=== PATIENT | female | born 1970 | race Caucasian/White ===

== ENCOUNTER 2016-10-04 20:53 | Emergency (ER) | payer OTHER, MEDICAID ==
[~2016-10-04] VITALS: Ht 170.2 cm; Wt 121.9 kg
[~2016-10-04 20:53] MED LIST: MOBI15TA PO
[2016-10-04 20:57] VITALS: BP 126/83; PULSE 81; RESP 16; TEMP 98.1; O2SAT 97
[2016-10-04] MEDS ORDERED: AMOX875T PO (21:25)
--- NOTE | 2016-10-04 21:25 | PD ---
HPI Chief Complaint: ENT Complaint Time Seen by Provider: 21:19 Travel History International Travel<30 days: No Contact w/Intl Traveler<30days: No Traveled to known affect area: No History of Present Illness HPI Patient is a 45-year-old female who presents emergency for evaluation of a sore throat and ear pain. Patient states her symptoms started 3 days ago. She denies any fevers or chills, nausea, vomiting, shortness of breath, chest pain. She does endorse nasal congestion and postnasal drip. PFSH Past Medical History Arthritis: Yes Autoimmune Disease: No Blood Disorders: No Anxiety: Yes Depression: Yes Heart Rhythm Problems: Yes (Reports arrhythmia, doesn't know which one.) Cancer: No Chemotherapy: No Diminished Hearing: No Endocrine: No Gastrointestinal Disorders: No Genitourinary: No Herniated Disk: Yes (X's 3) Musculoskeletal: Yes (Chronic pain left knee and right ankle) Neurologic: No Psychiatric: No Respiratory: No Immunizations Current: Yes Radiation Therapy: No Tetanus Vaccination: Unknown Influenza Vaccination: Yes ?: Not LMP: 09/20/16 : 3 Para: 3 Ovarian Cysts: Yes (Ruputured left fallopian tube/removed) Tubal Ligation: Yes Past Surgical History Abdominal Surgery: Yes Section: Yes Ear Surgery: No Eye Surgery: No Gynecologic Surgery: Yes Oral Surgery: No Other Surgery: Yes Social History Alcohol Use: Yes (RARE) Tobacco Use: No Substance Use: No Allergies-Medications (Allergen,Severity, Reaction): Coded Allergies: No Known Allergies (Verified , 06/26/16) Reported Meds & Prescriptions Reported Meds & Active Scripts Active Mobic (Meloxicam) 15 Mg Tab 15 Mg PO DAILY Review of Systems Except as stated in HPI: all other systems reviewed are Neg General / Constitutional: No: Fever, Chills HENT: Positive: Sore Throat, Congestion, Earache Cardiovascular: No: Chest Pain or Discomfort Respiratory: No: Shortness of Breath Gastrointestinal: No: Nausea, Vomiting, Diarrhea, Abdominal Pain Physical Exam Narrative GENERAL: Well-nourished, well-developed patient. SKIN: Warm and dry. HEAD: Normocephalic. ENT: Mucosa pink and moist. No uvular edema. No uvular, palatal, or tonsillar deviation. Airway patent. Nasal turbinates appear normal without nasal blood, purulent drainage or septal hematoma. Posterior pharynx has cobblestoning appearance, right tonsil is mildly enlarged, no exudates noted. EYES: No scleral icterus. No injection or drainage. EARS: Bilateral pinnae and external canals appear within normal limits. Bilateral tympanic membranes without erythema, dullness or perforation. NECK: Supple, trachea midline. No JVD or lymphadenopathy. CARDIOVASCULAR: Regular rate and rhythm without murmurs, gallops, or rubs. RESPIRATORY: Breath sounds equal bilaterally. No accessory muscle use. GASTROINTESTINAL: Abdomen soft, non-tender, nondistended. MUSCULOSKELETAL: No cyanosis, or edema. BACK: Nontender without obvious deformity. No CVA tenderness. Data Data Last Documented VS Vital Signs Date Time Temp Pulse Resp B/P Pulse Ox O2 Delivery O2 Flow Rate FiO2 10/04/16 21:07 81 16 10/04/16 20:57 98.1 126/83 97 Room Air MDM Medical Decision Making Medical Screen Exam Complete: Yes Emergency Medical Condition: Yes Interpretation(s) Vital Signs Date Time Temp Pulse Resp B/P Pulse Ox O2 Delivery O2 Flow Rate FiO2 10/04/16 21:07 81 16 10/04/16 20:57 98.1 81 16 126/83 97 Room Air Differential Diagnosis Viral URI versus otitis media versus otitis externa versus pharyngitis versus tonsillitis versus abscess versus other Narrative Course Patient is a 45-year-old female who presents emergency department for evaluation of a sore throat and ear pain. Patient is afebrile, she will oxygenated on room air, her vital signs are stable. Physical examination appears most consistent with a viral upper respiratory infection, posterior pharynx is cobblestone appearance. Patient was encouraged to trial symptom management. She was encouraged to obtain [id number] Sudafed or similar, nasal saline wash, nasal steroid. Ibuprofen for pain. She was encouraged to follow-up with her primary doctor return to emergency department for any new or worsening symptoms. Patient will be given a prescription should her symptoms begin to worsen or not improve. She was advised that antibiotics will not cure a viral illness. Patient verbalized understanding of these instructions. Patient is stable for discharge. Diagnosis Primary Impression: Upper respiratory infection Qualified Code: J06.9 - Upper respiratory tract infection, unspecified type Referrals: Primary Care Physician Patient Instructions: General Instructions, Upper Respiratory Infection (ED) Additional Instructions: Continue symptom management Obtain [id number] Sudafed or similar nasal decongestant and use as directed Nasal saline wash, nasal steroids such as Nasonex or Flonase If you begin the antibiotic complete full course to avoid antibiotic resistance Return to emergency department for any new or worsening symptoms Med/Other Pt SpecificInfo: Prescription(s) given Scripts Amoxicillin 875 Mg [id number] Mg PO BID 10 Days Ref 0 Prov:Makenzie Espinal 10/04/16 Disposition: 01 DISCHARGE HOME Condition: Stable Makenzie Espinal Oct 04, 2016 21:25
== END 2016-10-04 21:40 | disposition home or self-care (01) ==
LOC: PHEFT 20:53
DX: J06.9 Acute upper respiratory infection, unspecified (principal)
CPT/HCPCS: 99283

== ENCOUNTER 2016-12-29 19:59 | Emergency (ER) | payer BC, MEDICAID, OTHER ==
[~2016-12-29] VITALS: Ht 170.2 cm; Wt 121.0 kg
[~2016-12-29 19:59] MED LIST changes: +AMOX875T PO
[2016-12-29 20:11] VITALS: BP 119/80; PULSE 100; RESP 18; TEMP 101; O2SAT 99
[2016-12-29 20:33] VITALS: BP 134/74; PULSE 96; RESP 18; TEMP 100.4; O2SAT 96
[2016-12-29 20:37] VITALS: PULSE 92; RESP 18; O2SAT 97
[2016-12-29] MEDS ORDERED: ACETAMINOPHEN 325 MG TAB PO ONE (20:45)
[2016-12-29] MEDS ORDERED: SODIUM CHLORIDE 0.9% FLUSH 10 ML FLUSH IVF PRN (20:45)
[2016-12-29] MEDS ORDERED: SODIUM CHLOR 0.9% 1000 ML INJ 1,000 ML IV ONE (20:45)
--- NOTE | 2016-12-29 20:47 | PD ---
HPI Chief Complaint: Dizziness Time Seen by Provider: 20:19 Travel History International Travel<30 days: No Contact w/Intl Traveler<30days: No Traveled to known affect area: No History of Present Illness HPI Patient 46-year-old female presents emergency department for body aches chills mild queasiness as well as some mild chest discomfort. Patient states his been going on for the past day and half. Patient also has a secondary complaint of she broke up a fight between her cat and some dogs and was bitten on bilateral index fingers. Patient states this happened just prior to arrival the cat is there In their custody but the shots are not up-to-date. Her daughter is accompanying her stated the reason they decided to come to the ER because of the Bites. Patient denies any cough or congestion abdominal pain vomiting diarrhea or dysuria. PFSH Past Medical History Arthritis: Yes Autoimmune Disease: No Blood Disorders: No Anxiety: Yes Depression: Yes Heart Rhythm Problems: Yes (Reports arrhythmia, doesn't know which one.) Cancer: No Cardiovascular Problems: Yes Chemotherapy: No Diminished Hearing: No Endocrine: No Gastrointestinal Disorders: No Genitourinary: No Herniated Disk: Yes (X's 3) Musculoskeletal: Yes (Chronic pain left knee and right ankle) Neurologic: No Psychiatric: No Respiratory: No Immunizations Current: Yes Radiation Therapy: No Tetanus Vaccination: > 5 Years ?: Not LMP: 11/14/2016 : 3 Para: 3 Ovarian Cysts: Yes (Ruputured left fallopian tube/removed) Tubal Ligation: Yes Past Surgical History Abdominal Surgery: Yes Section: Yes Ear Surgery: No Eye Surgery: No Gynecologic Surgery: Yes Oral Surgery: No Other Surgery: Yes Social History Alcohol Use: Yes (RARE) Tobacco Use: No Substance Use: No Allergies-Medications (Allergen,Severity, Reaction): Coded Allergies: No Known Allergies (Verified , 12/29/16) Reported Meds & Prescriptions Reported Meds & Active Scripts Active Zofran Odt (Ondansetron Odt) 4 Mg Tab 4 Mg SL Q6HR PRN Augmentin (Amoxicillin-Clavulanate) 500-125 mg Tab 500 Mg PO BID 10 Days Review of Systems Except as stated in HPI: all other systems reviewed are Neg Physical Exam Narrative GENERAL: Well-developed obese but in no apparent distress SKIN: Focused skin assessment warm/dry. There is some small abrasions and punctures to the bilateral index fingers over the proximal phalanx. No bleeding. There is some minimal edema particularly over the index finger of the right hand. No cellulitis. HEAD: Atraumatic. Normocephalic. EYES: Pupils equal and round. No scleral icterus. No injection or drainage. ENT: No nasal bleeding or discharge. Mucous membranes pink and moist. TMs clear bilaterally or pharynx clear. NECK: Trachea midline. No JVD. CARDIOVASCULAR: Regular rate and rhythm. No murmur appreciated. RESPIRATORY: No accessory muscle use. Clear to auscultation. Breath sounds equal bilaterally. GASTROINTESTINAL: Abdomen soft, non-tender, nondistended. Hepatic and splenic margins not palpable. MUSCULOSKELETAL: No obvious deformities. No clubbing. No cyanosis. No edema. NEUROLOGICAL: Awake and alert. No obvious cranial nerve deficits. Motor grossly within normal limits. Normal speech. PSYCHIATRIC: Appropriate mood and affect; insight and judgment normal. Data Data Last Documented VS Vital Signs Date Time Temp Pulse Resp B/P Pulse Ox O2 Delivery O2 Flow Rate FiO2 12/29/16 22:24 86 18 103/67 97 12/29/16 20:37 Room Air 12/29/16 20:33 100.4 Orders Electrocardiogram (12/29/16 20:32) Basic Metabolic Panel (Bmp) (12/29/16 20:32) Complete Blood Count With Diff (12/29/16 20:32) Troponin I (12/29/16 20:32) Chest, Single Ap (12/29/16 20:32) Ecg Monitoring (12/29/16 20:32) Bilateral Bp Monitoring (12/29/16 20:32) Iv Access Insert/Monitor (12/29/16 20:32) Oximetry (12/29/16 20:32) Oxygen Administration (12/29/16 20:32) Sodium Chloride 0.9% Flush (Ns Flush) (12/29/16 20:45) Ed Urine Pregnancytest Poc (12/29/16 20:32) Urinalysis - C+S If Indicated (12/29/16 20:32) Influenzae A/B Antigen (12/29/16 20:32) Acetaminophen (Tylenol) (12/29/16 20:45) Sodium Chlor 0.9% 1000 Ml Inj (Ns 1000 M (12/29/16 20:45) Hand, Complete ([id number]) (12/29/16 ) Hand, Complete ([id number]) (12/29/16 ) Labs Laboratory Tests Test 12/29/16 12/29/16 20:51 20:58 Urine Collection Type VOIDED Urine Color YELLOW Urine Turbidity CLEAR Urine pH 5.5 Urine Specific Dillon 1.027 Urine Protein 30 mg/dL Urine Glucose (UA) NEG mg/dL Urine Ketones NEG mg/dL Urine Occult Blood NEG Urine Nitrite NEG Urine Bilirubin NEG Urine Leukocyte Esterase NEG Urine WBC 0-2 /hpf Urine Squamous Epithelial >8 /hpf Cells Urine Bacteria RARE /hpf Urine Mucus MANY /lpf Microscopic Urinalysis Comment CULT NOT INDICATED White Blood Count 14.5 TH/MM3 Red Blood Count 5.28 MIL/MM3 Hemoglobin 15.2 GM/DL Hematocrit 44.5 % Mean Corpuscular Volume 84.3 FL Mean Corpuscular Hemoglobin 28.8 PG Mean Corpuscular Hemoglobin 34.2 % Concent Red Cell Distribution Width 12.1 % Platelet Count 185 TH/MM3 Mean Platelet Volume 9.1 FL Neutrophils (%) (Auto) 91.2 % Lymphocytes (%) (Auto) 6.3 % Monocytes (%) (Auto) 2.1 % Eosinophils (%) (Auto) 0.2 % Basophils (%) (Auto) 0.2 % Neutrophils # (Auto) 13.3 TH/MM3 Lymphocytes # (Auto) 0.9 TH/MM3 Monocytes # (Auto) 0.3 TH/MM3 Eosinophils # (Auto) 0.0 TH/MM3 Basophils # (Auto) 0.0 TH/MM3 CBC Comment DIFF FINAL Differential Comment Sodium Level 141 MEQ/L Potassium Level 4.1 MEQ/L Chloride Level 103 MEQ/L Carbon Dioxide Level 27.2 MEQ/L Anion Gap 11 MEQ/L Blood Urea Nitrogen 14 MG/DL Creatinine 0.86 MG/DL Estimat Glomerular Filtration 71 ML/MIN Rate Random Glucose 110 MG/DL Calcium Level 9.0 MG/DL Troponin I LESS THAN 0.02 NG/ML [facility] Medical Decision Making Medical Screen Exam Complete: Yes Emergency Medical Condition: Yes Interpretation(s) EKG shows sinus rhythm with Q waves in lead 3 and aVF. Minimal left axis deviation normal R-wave progression. No concerning ST T changes. This is an abnormal EKG. Comparison to 11/21/2015 shows no change. Differential Diagnosis Bite, fever, viral illness, pneumonia, urinary tract infection, influenza Narrative Course Patient was roomed emergency department, given fluids and Tylenol. She was afebrile at the point of reassessment near discharge. Rapid flu test was negative, white blood cell count minimally elevated to 14,000. Definitive cause of her fever was not established. She appears well in no apparent distress and is no indication for further emergent workup at this time. I seriously doubt severe bacterial infection. Her cat bites were to recent to be the source of her fever. Discussed antibiotic therapy need follow-up with primary care physician observing the cat for any illness and the cat should develop illness needs to be tested for rabies and the patient should be treated. There is no indication for rabies shots this time. Chest x-ray was negative, bilateral hand x-rays were negative. She is stable for discharge at this time. Diagnosis Primary Impression: Fever Qualified Code: R50.9 - Fever, unspecified fever cause Additional Impressions: Cat bite of finger Qualified Code: S61.259A - Cat bite of finger, initial encounter Viral syndrome Med/Other Pt SpecificInfo: Prescription(s) given Scripts Ondansetron Odt (Zofran Odt)4 Mg Tab4 Mg SL Q6HR PRN (Nausea/Vomiting) #30 TAB Ref 0 Prov:Stephane Murillo MD 12/29/16 Amoxicillin-Clavulanate (Augmentin)500-125 mg Egm100 Mg PO BID 10 Days Ref 0 Prov:Stephane Murillo MD 12/29/16 Disposition: 01 DISCHARGE HOME Condition: Stable Stephane Murillo MD Dec 29, 2016 20:47
[2016-12-29 21:25] LABS: BLOOD, URINE NEG (NEG); GLUCOSE,URINE NEG (NEG); KETONE, URINE NEG (NEG); NITRITE,URINE NEG (NEG); PH, URINE 5.5 (5.0-8.5)
[2016-12-29 21:29] LABS: AUTOMATED NEUTROPHIL # 13.3 TH/MM3 (1.8-7.7); BASOPHIL % 0.2 % (0.0-2.0); EOSINOPHIL % 0.2 % (0.0-4.0); HEMATOCRIT 44.5 % (35.0-46.0); LYMPH % 6.3 % (9.0-44.0); LYMPHOCYTE # 0.9 TH/MM3 (1.0-4.8); MEAN CELL VOLUME 84.3 FL (80.0-100.0); MEAN CORPUSCULAR HEMOGLOBIN 28.8 PG (27.0-34.0); MEAN CORPUSCULAR HGB CONC 34.2 % (32.0-36.0); MONO % 2.1 % (0.0-8.0); NEUT % 91.2 % (16.0-70.0); PLATELET COUNT 185 TH/MM3 (150-450); RED BLOOD COUNT 5.28 MIL/MM3 (4.00-5.30); RED CELL DISTRIBUTION WIDTH 12.1 % (11.6-17.2); WHITE BLOOD COUNT 14.5 TH/MM3 (4.0-11.0)
[2016-12-29 21:32] LABS: HEMO FLAGS DIFF FINAL
[2016-12-29 21:33] LABS: CHLORIDE 103 MEQ/L (98-107); POTASSIUM 4.1 MEQ/L (3.5-5.1); SODIUM (NA) 141 MEQ/L (136-145)
[2016-12-29 21:35] LABS: ANION GAP 11 MEQ/L (5-15); BICARBONATE 27.2 MEQ/L (21.0-32.0)
[2016-12-29 21:36] LABS: BLOOD UREA NITROGEN 14 MG/DL (7-18)
[2016-12-29 21:39] LABS: GLOMERULAR FILTRATION RATE 71 ML/MIN (>89)
--- NOTE | 2016-12-29 21:51 | RADHPO ---
EXAM DATE/TIME: 12/29/2016 21:09 [facility] COMPARISON: No previous studies available for comparison. INDICATIONS : Dizziness. MEDICAL HISTORY : None. SURGICAL HISTORY : None. ENCOUNTER: Initial ACUITY: 1 day PAIN SCORE: 0/10 LOCATION: Bilateral chest FINDINGS: A single view of the chest demonstrates the lungs to be symmetrically aerated without evidence of mas s, infiltrate or effusion. The cardiomediastinal contours are unremarkable. Osseous structures are intact. CONCLUSION: No acute disease. Aamir Ramirez MD on December 29, 2016 at 21:49 Board Certified Radiologist. This report was verified electronically.
--- NOTE | 2016-12-29 21:52 | RADHPO ---
EXAM DATE/TIME: 12/29/2016 21:11 [facility] COMPARISON: No previous studies available for comparison. INDICATIONS : Left hand pain post cat bite. MEDICAL HISTORY : None. SURGICAL HISTORY : None. ENCOUNTER: Initial ACUITY: 1 day PAIN SCORE: 5/10 LOCATION: Left hand. FINDINGS: Three view examination of the left hand demonstrates no soft tissue swelling, dislocation, or fractur e. The carpal bones appear intact. The interphalangeal and metacarpophalangeal joints are intact. Bony mineralization is normal. CONCLUSION: 1. No acute findings. Aamir Ramirez MD on December 29, 2016 at 21:49 Board Certified Radiologist. This report was verified electronically.
--- NOTE | 2016-12-29 21:53 | RADHPO ---
EXAM DATE/TIME: 12/29/2016 21:13 [facility] COMPARISON: No previous studies available for comparison. INDICATIONS : Right hand pain post cat bite. MEDICAL HISTORY : None. SURGICAL HISTORY : None. ENCOUNTER: Initial ACUITY: 1 day PAIN SCORE: 5/10 LOCATION: Right hand. FINDINGS: Three view examination of the right hand demonstrates no soft tissue swelling, dislocation, or fractu re. The carpal bones appear intact. The interphalangeal and metacarpophalangeal joints are intact. Bony mineralization is normal. CONCLUSION: 1. No acute findings. Aamir Ramirez MD on December 29, 2016 at 21:51 Board Certified Radiologist. This report was verified electronically.
[2016-12-29 22:01] LABS: METHOD OF COLLECTION VOIDED; URINE COLOR YELLOW (YELLW/STRAW)
[2016-12-29 22:02] LABS: BACTERIA, URINE RARE /hpf; COMMENT (UR) CULT NOT INDICATED; CULTURE IF INDICATED CULT NOT INDICATED; MUCUS URINE MANY /lpf (OCC); SQUAMOUS EPITHELIAL CELL URINE >8 /hpf (0-5); WBC, URINE 0-2 /hpf (0-5)
[2016-12-29] MEDS ORDERED: ZOFR4TAB3 SL (22:12)
[2016-12-29] MEDS ORDERED: AUGM500T7 PO (22:12)
[2016-12-29 22:24] VITALS: BP 103/67
--- NOTE | 2016-12-30 13:47 | EKG ---
Date Performed: 12/29/2016 Time Performed: 20:39:20 PTAGE: 46 years EKG: Borderline left axis deviation Poor R wave progression which may be a normal variant Since previous tracing, no significant change noted Abnormal ECG PREVIOUS TRACING : 11/21/2015 14.05 DOCTOR: Cristóbal Hoang Interpretating Date/Time 12/30/2016 13:45:24
== END 2016-12-29 22:44 | disposition home or self-care (01) ==
LOC: PHED 19:59
DX: R50.9 Fever, unspecified (principal); S61.251A Open bite of left index finger without damage to nail, initial encounter; S61.250A Open bite of right index finger without damage to nail, initial encounter; B34.9 Viral infection, unspecified; R94.31 Abnormal electrocardiogram [ECG] [EKG]; Z87.39 Personal history of other diseases of the musculoskeletal system and connective tissue; Z86.79 Personal history of other diseases of the circulatory system; Z86.59 Personal history of other mental and behavioral disorders; W55.01XA Bitten by cat, initial encounter
CPT/HCPCS: 71010; 73130; 80048; 81001; 84484; 84703; 85025; 87804; 93005; 96360; 99284; J7030

== ENCOUNTER 2017-03-04 22:25 | Emergency (ER) | payer MEDICAID ==
[~2017-03-04] VITALS: Ht 170.2 cm; Wt 125.2 kg
[~2017-03-04 22:25] MED LIST changes: -AMOX875T PO; +AUGM500T7 PO; -MOBI15TA PO; +ZOFR4TAB3 SL
[2017-03-04 22:27] VITALS: BP 132/80; PULSE 67; RESP 18; TEMP 98.5; O2SAT 98
[2017-03-04] MEDS ORDERED: BACT800T5 PO (22:57)
--- NOTE | 2017-03-04 22:59 | PD ---
HPI Chief Complaint: Skin Problem Time Seen by Provider: 22:57 Travel History International Travel<30 days: No Contact w/Intl Traveler<30days: No Traveled to known affect area: No History of Present Illness HPI 46-year-old female presents to the emergency room for evaluation of 3 mosquito bites to her left lower extremity that occurred 2 days ago. Patient states they are extremely itchy. She noticed increased redness morning when she woke up. She reports clear drainage but denies any purulent discharge. States it is not painful. She is concerned because the area on her left knee feels harder than the area on her right knee. Denies fever, chills, nausea, and vomiting. PFSH Past Medical History Arthritis: Yes Autoimmune Disease: No Blood Disorders: No Anxiety: Yes Depression: Yes Heart Rhythm Problems: Yes (Reports arrhythmia, doesn't know which one.) Cancer: No Cardiovascular Problems: Yes (ARRYTHMIA) Chemotherapy: No Diminished Hearing: No Endocrine: No Gastrointestinal Disorders: No Genitourinary: No Herniated Disk: Yes (X's 3) Musculoskeletal: Yes (Chronic pain left knee and right ankle) Neurologic: No Psychiatric: No Respiratory: No Immunizations Current: Yes Radiation Therapy: No Tetanus Vaccination: Unknown Influenza Vaccination: Yes ?: Not LMP: BEGIN FEBRUARY : 3 Para: 3 Ovarian Cysts: Yes (Ruputured left fallopian tube/removed) Tubal Ligation: Yes Past Surgical History Abdominal Surgery: Yes Section: Yes Ear Surgery: No Eye Surgery: No Gynecologic Surgery: Yes Oral Surgery: No Other Surgery: Yes Social History Alcohol Use: Yes (OCCASIONAL) Tobacco Use: No Substance Use: No Allergies-Medications (Allergen,Severity, Reaction): Coded Allergies: No Known Allergies (Verified , 03/04/17) Reported Meds & Prescriptions Reported Meds & Active Scripts Active Bactrim DS (Sulfamethoxazole-Trimethoprim) 800-160 Mg Tab 1 Tab PO BID Review of Systems Except as stated in HPI: all other systems reviewed are Neg Physical Exam Narrative GENERAL: Well-nourished, well-developed female in no acute distress. Afebrile. Ambulatory. SKIN: Focused skin assessment warm/dry. There is a small noninfected bite to the left lower anterior tibia. There is a small bite on the left inferior knee that is nontender to palpation. No drainage. No induration. Mild surrounding , nonblanching erythema. There is a small noninfected bite to the posterior calf. HEAD: Normocephalic. EYES: No scleral icterus. No injection or drainage. NECK: Supple, trachea midline. No JVD or lymphadenopathy. CARDIOVASCULAR: Regular rate and rhythm without murmurs, gallops, or rubs. RESPIRATORY: Breath sounds equal bilaterally. No accessory muscle use. PSYCHIATRIC: No delusional thought processes. No hallucinations. Data Data Last Documented VS Vital Signs Date Time Temp Pulse Resp B/P Pulse Ox O2 Delivery O2 Flow Rate FiO2 03/04/17 22:27 98.5 67 18 132/80 98 MDM Medical Decision Making Medical Screen Exam Complete: Yes Emergency Medical Condition: Yes Medical Record Reviewed: Yes Differential Diagnosis Early cellulitis, abscess, infected bug bite, ecchymosis Narrative Course 46-year-old female presents to the emergency room for evaluation of 3 but bites to her left lower extremity that started 3 days ago. Patient states increased redness started today. Physical exam is reassuring. Patient has 2 noninfected mosquito bites. The third bite has 2 cm of surrounding erythema that is non- blanchable. It is nontender and nonindurated. No increased warmth. The redness is more evident of ecchymosis caused by scratching than secondary bacterial infection. The area was outlined with purple marker. Patient will be discharged with prescription for Bactrim and told only to start medication if redness continues to expand, becomes hard, becomes warm, or develops pain. She understands and agrees to plan. Diagnosis Primary Impression: Cellulitis Qualified Code: L03.116 - Cellulitis of left lower extremity Referrals: Primary Care Physician Patient Instructions: Cellulitis (ED), General Instructions Additional Instructions: Rest and drink plenty of fluids. Start Bactrim if redness expands outside purple line, until gone. Follow up with a primary care physician. Return to emergency room for worsening symptoms, as discussed. Med/Other Pt SpecificInfo: Prescription(s) given Scripts Sulfamethoxazole-Trimethoprim (Bactrim DS)800-160 Mg Tab1 Tab PO BID #14 TAB Ref 0 Prov:Freddy Liao MD 03/04/17 Disposition: 01 DISCHARGE HOME Condition: Stable Elena López Mar 04, 2017 22:59
== END 2017-03-04 23:07 | disposition home or self-care (01) ==
LOC: PHEFT 22:25
DX: L03.116 Cellulitis of left lower limb (principal)
CPT/HCPCS: 99283

== ENCOUNTER 2017-04-15 11:48 | Observation (INO) | payer MEDICAID ==
[~2017-04-15] VITALS: Ht 170.2 cm; Wt 121.4 kg
[~2017-04-15 11:48] MED LIST changes: -AUGM500T7 PO; +BACT800T5 PO; -ZOFR4TAB3 SL
[2017-04-15 11:55] VITALS: BP 150/88; PULSE 71; RESP 16; TEMP 98.1; O2SAT 96
--- NOTE | 2017-04-15 12:01 | PD ---
HPI Chief Complaint: Chest Pain Time Seen by Provider: 12:00 Travel History International Travel<30 days: No Contact w/Intl Traveler<30days: No Traveled to known affect area: No History of Present Illness HPI 46 -year-old female complains of a vague chest discomfort. She felt that yesterday. She reports significant personal stress lately and believes they might be related. She's had no shortness of breath. She does describe some pain in the left shoulder however was updated old rotator cuff injury. No exertional component. No shortness of breath fever or cough. The notes the patient's cervical sometimes with breathing at night due to what they believe might be sleep apnea. The patient also reports feeling rundown and fatigued generally for the past couple weeks. At the time of evaluation in the ER she has no chest discomfort. She reports a family history of coronary artery disease with a brother, 10 years older than her, having just recently suffered a major RI. No diabetes hypertension hyperlipidemia or smoking history. PFSH Past Medical History Arthritis: Yes Autoimmune Disease: No Blood Disorders: No Anxiety: Yes Depression: Yes Heart Rhythm Problems: Yes (Reports arrhythmia, doesn't know which one.) Cancer: No Cardiovascular Problems: Yes (ARRYTHMIA) Chemotherapy: No Diminished Hearing: No Endocrine: No Gastrointestinal Disorders: No Genitourinary: No Herniated Disk: Yes (X's 3) Musculoskeletal: Yes (Chronic pain left knee and right ankle) Neurologic: No Psychiatric: No Respiratory: No Immunizations Current: Yes Radiation Therapy: No : 3 Para: 3 Ovarian Cysts: Yes (Ruputured left fallopian tube/removed) Tubal Ligation: Yes Past Surgical History Abdominal Surgery: Yes Section: Yes Ear Surgery: No Eye Surgery: No Gynecologic Surgery: Yes Oral Surgery: No Other Surgery: Yes Social History Alcohol Use: Yes (OCCASIONAL) Tobacco Use: No Substance Use: No Allergies-Medications (Allergen,Severity, Reaction): Coded Allergies: No Known Allergies (Verified , 04/15/17) Reported Meds & Prescriptions Reported Meds & Active Scripts Active No Active Prescriptions or Reported Medications Review of Systems Except as stated in HPI: all other systems reviewed are Neg General / Constitutional: No: Fever Physical Exam Narrative GENERAL: 46-year-old female pleasant no acute distress SKIN: Warm and dry. HEAD: Atraumatic. Normocephalic. EYES: Pupils equal and round. No scleral icterus. No injection or drainage. ENT: No nasal bleeding or discharge. Mucous membranes pink and moist. NECK: Trachea midline. No JVD. CARDIOVASCULAR: Regular rate and rhythm. RESPIRATORY: No accessory muscle use. Clear to auscultation. Breath sounds equal bilaterally. GASTROINTESTINAL: Abdomen soft, non-tender, nondistended. Hepatic and splenic margins not palpable. MUSCULOSKELETAL: Extremities without clubbing, cyanosis, or edema. No obvious deformities. NEUROLOGICAL: Awake and alert. No obvious cranial nerve deficits. Motor grossly within normal limits. Five out of 5 muscle strength in the arms and legs. Normal speech. PSYCHIATRIC: Appropriate mood and affect; insight and judgment normal. Data Data Last Documented VS Vital Signs Date Time Temp Pulse Resp B/P Pulse Ox O2 Delivery O2 Flow Rate FiO2 04/15/17 12:25 97 Room Air 04/15/17 12:25 68 04/15/17 11:55 98.1 16 150/88 Vital signs reviewed Orders Electrocardiogram (04/15/17 12:17) Basic Metabolic Panel (Bmp) (04/15/17 12:17) Ckmb (Isoenzyme) Profile (04/15/17 12:17) Complete Blood Count With Diff (04/15/17 12:17) Magnesium (Mg) (04/15/17 12:17) Prothrombin Time / Inr (Pt) (04/15/17 12:17) Act Partial Throm Time (Ptt) (04/15/17 12:17) Troponin I (04/15/17 12:17) Chest, Single Ap (04/15/17 12:17) Ecg Monitoring (04/15/17 12:17) Iv Access Insert/Monitor (04/15/17 12:17) Oximetry (04/15/17 12:17) Oxygen Administration (04/15/17 12:17) Sodium Chloride 0.9% Flush (Ns Flush) (04/15/17 12:30) Admit Order (Ed Use Only) (04/15/17 13:33) Place In Observation (04/15/17 13:31) Activity Bed Rest With Brp (04/15/17 13:31) Vital Signs (Adult) Q4H (04/15/17 13:31) Cardiac Rhythm .As Directed (04/15/17 13:31) Notify Dr: Other .PRN (04/15/17 13:31) Notify DrNoble Parameters (04/15/17 13:31) Resp Oxygen Nasal Cannula (04/15/17 ) Electrocardiogram (04/15/17 13:31) Electrocardiogram (04/15/17 16:31) ^ Obtain (04/15/17 13:31) Sodium Chloride 0.9% Flush (Ns Flush) (04/15/17 13:45) Sodium Chloride 0.9% Flush (Ns Flush) (04/15/17 21:00) Nitroglycerin Sl (Nitrostat Sl) (04/15/17 13:45) Route Driver Salesperson / Telemetry LAWSON.Q8H (04/15/17 13:31) Electrocardiogram (04/15/17 15:30) Electrocardiogram (04/15/17 18:30) Ckmb (Isoenzyme) Profile (04/15/17 15:30) Ckmb (Isoenzyme) Profile (04/15/17 18:30) Troponin I (04/15/17 15:30) Troponin I (04/15/17 18:30) Labs Laboratory Tests Test 04/15/17 12:35 White Blood Count 7.7 TH/MM3 Red Blood Count 5.20 MIL/MM3 Hemoglobin 14.6 GM/DL Hematocrit 43.5 % Mean Corpuscular Volume 83.7 FL Mean Corpuscular Hemoglobin 28.0 PG Mean Corpuscular Hemoglobin 33.4 % Concent Red Cell Distribution Width 12.3 % Platelet Count 235 TH/MM3 Mean Platelet Volume 8.8 FL Neutrophils (%) (Auto) 62.9 % Lymphocytes (%) (Auto) 29.8 % Monocytes (%) (Auto) 5.9 % Eosinophils (%) (Auto) 0.9 % Basophils (%) (Auto) 0.5 % Neutrophils # (Auto) 4.8 TH/MM3 Lymphocytes # (Auto) 2.3 TH/MM3 Monocytes # (Auto) 0.5 TH/MM3 Eosinophils # (Auto) 0.1 TH/MM3 Basophils # (Auto) 0.0 TH/MM3 CBC Comment DIFF FINAL Differential Comment Prothrombin Time 10.7 SEC Prothromb Time International 1.0 RATIO Ratio Activated Partial 25.4 SEC Thromboplast Time Sodium Level 141 MEQ/L Potassium Level 4.0 MEQ/L Chloride Level 105 MEQ/L Carbon Dioxide Level 28.8 MEQ/L Anion Gap 7 MEQ/L Blood Urea Nitrogen 13 MG/DL Creatinine 0.83 MG/DL Estimat Glomerular Filtration 74 ML/MIN Rate Random Glucose 88 MG/DL Calcium Level 8.7 MG/DL Magnesium Level 2.3 MG/DL Total Creatine Kinase 94 U/L Troponin I LESS THAN 0.02 NG/ML MDM Medical Decision Making Medical Screen Exam Complete: Yes Emergency Medical Condition: Yes Differential Diagnosis NSTEMI, unstable angina, coronary vasospasm, PE, PTX, aortic dissection, pericarditis, myocarditis, endocarditis, PNA, esophageal disease, aneurysm, musculoskeletal etiologies, anxiety, cocaine/sympathomimetic abuse Narrative Course EKG: SINUS, NORMAL AXIS/INTERVALS, NORMAL RATE CXR: NO DENSE CONSOLIDATION CBC & BMP Diagram 04/15/17 12:35 TN < 0.02 Chest pain center protocol considered most appropriate next for this patient. d/w Dr Mcconnell Diagnosis Primary Impression: Chest pain Qualified Code: R07.9 - Chest pain, unspecified type Admitting Information Admitting Physician Requests: Observation Scripts No Active Prescriptions or Reported Meds Jus Nathan MD Apr 15, 2017 12:01
[2017-04-15 12:25] VITALS: O2SAT 97
[2017-04-15] MEDS ORDERED: SODIUM CHLORIDE 0.9% FLUSH 10 ML FLUSH IVF PRN (12:30)
[2017-04-15 12:41] LABS: AUTOMATED NEUTROPHIL # 4.8 TH/MM3 (1.8-7.7); BASOPHIL % 0.5 % (0.0-2.0); EOSINOPHIL # 0.1 TH/MM3 (0-0.4); EOSINOPHIL % 0.9 % (0.0-4.0); HEMATOCRIT 43.5 % (35.0-46.0); HEMO FLAGS DIFF FINAL; LYMPH % 29.8 % (9.0-44.0); LYMPHOCYTE # 2.3 TH/MM3 (1.0-4.8); MEAN CELL VOLUME 83.7 FL (80.0-100.0); MEAN CORPUSCULAR HGB CONC 33.4 % (32.0-36.0); MONO % 5.9 % (0.0-8.0); NEUT % 62.9 % (16.0-70.0); PLATELET COUNT 235 TH/MM3 (150-450); RED CELL DISTRIBUTION WIDTH 12.3 % (11.6-17.2); WHITE BLOOD COUNT 7.7 TH/MM3 (4.0-11.0)
[2017-04-15 12:55] LABS: CHLORIDE 105 MEQ/L (98-107); SODIUM (NA) 141 MEQ/L (136-145)
[2017-04-15 12:58] LABS: ANION GAP 7 MEQ/L (5-15); BICARBONATE 28.8 MEQ/L (21.0-32.0); BLOOD UREA NITROGEN 13 MG/DL (7-18); MAGNESIUM 2.3 MG/DL (1.5-2.5)
[2017-04-15 12:59] LABS: APTT (PATIENT) 25.4 SEC (24.3-30.1); PROTHROMBIN TIME - PATIENT 10.7 SEC (9.8-11.6)
[2017-04-15 13:02] LABS: GLOMERULAR FILTRATION RATE 74 ML/MIN (>89)
--- NOTE | 2017-04-15 13:07 | RADRPT ---
EXAM DATE/TIME: 04/15/2017 12:27 [facility] COMPARISON: CHEST SINGLE AP, December 29, 2016, 21:09. INDICATIONS : Chest pain MEDICAL HISTORY : None. SURGICAL HISTORY : None. ENCOUNTER: Initial ACUITY: 2 days PAIN SCORE: 4/10 LOCATION: Bilateral chest FINDINGS: The lungs are clear without infiltrate, nodule, or mass. There is no appreciable pleural effusion fo r technique. Heart and mediastinum are unremarkable. CONCLUSION: No acute cardiopulmonary disease. Janna Mckeon MD on April 15, 2017 at 13:05 Board Certified Radiologist. This report was verified electronically.
[2017-04-15 13:11] LABS: CREATINE KINASE 94 U/L (26-192)
[2017-04-15] MEDS ORDERED: NITROGLYCERIN 0.4 MG SL 25 TABS/BTL SL PRN (13:45)
[2017-04-15] MEDS ORDERED: SODIUM CHLORIDE 0.9% FLUSH 10 ML FLUSH IV FLUSH PRN (13:45)
--- NOTE | 2017-04-15 14:51 | HHI.HP ---
HPI Primary Care Physician No Primary Care Physician Admission Diagnosis Chest Pain Diagnoses: Chief Complaint: Chest discomfort History of Present Illness This is a 46-year-old female with minimal past medical history who has come in with 2 days of chest discomfort. She reports increasing psychosocial stressors with her family. Patient has no nausea or vomiting but reports "wavelike "fatigue accompanying her chest discomfort. The chest discomfort is not described as pain but most closely resembles pressure per patient. It is resolved with sleep and patient feels she may have increased anxiety due to her psychosocial stressors. She has a history of sleep apnea but is not under treatment. There is no previous diagnosis of diabetes or hypertension and the patient takes no [id number] or prescribed medications. EKG on my review is sinus and rhythm without any ischemic changes or reciprocal changes indicating any ischemia. Patient's cardiac enzymes and other laboratories appear within normal limits. Chest x-ray is unremarkable my review. Patient is recommended for further evaluation in the chest pain center due to atypical symptoms of chest discomfort and a family history of premature cardiac disease. Review of Systems Constitutional: DENIES: Diaphoretic episodes, Fatigue, Fever, Weight gain, Weight loss, Chills, Dizziness, Change in appetite, Night Sweats Endocrine: DENIES: Abnorml menstrual pattern, Heat/cold intolerance, Polydipsia , Polyuria, Polyphagia Eyes: DENIES: Blurred vision, Diplopia, Eye inflammation, Eye pain, Vision loss , Photosensitivity, Double Vision Ears, nose, mouth, throat: DENIES: Tinnitus, Hearing loss, Vertigo, Nasal discharge, Oral lesions, Throat pain, Hoarseness, Ear Pain, Running Nose, Epistaxis, Sinus Pain, Toothache, Odynophagia Respiratory: DENIES: Apneas, Cough, Snoring, Wheezing, Hemoptysis, Sputum production, Shortness of breath Cardiovascular: COMPLAINS OF: Chest pain, Palpitations, DENIES: Syncope, Dyspnea on Exertion, PND, Lower Extremity Edema, Orthopnea, Claudication Gastrointestinal: DENIES: Abdominal pain, Black stools, Bloody stools, Constipation, Diarrhea, Nausea, Vomiting, Difficulty Swallowing, Anorexia Genitourinary: DENIES: Abnormal vaginal bleeding, Dysmenorrhea, Dyspareunia, Sexual dysfunction, Urinary frequency, Urinary incontinence, Urgency, Hematuria , Dysuria, Nocturia, Vaginal discharge Musculoskeletal: DENIES: Joint pain, Muscle aches, Stiffness, Joint Swelling, Back pain, Neck pain Integumentary: DENIES: Abnormal pigmentation, Pruritus, Rash, Nail changes, Breast masses, Breast skin changes, Nipple discharge Immunologic/allergic: DENIES: Eczema, Urticaria Neurologic: DENIES: Abnormal gait, Headache, Localized weakness, Paresthesias, Seizures, Speech Problems, Tremor, Poor Balance Psychiatric: COMPLAINS OF: Anxiety, DENIES: Confusion, Mood changes, Depression, Hallucinations, Agitation, Suicidal Ideation, Homicidal Ideation, Delusions Past Family Social History Past Medical History Depression Sleep apnea Past Surgical History Tubal surgery Reported Medications None Allergies: Coded Allergies: No Known Allergies (Verified , 04/15/17) Active Ordered Medications Reviewed in the medical record Family History Mother had a heart bypass in her 70s, brother had stents and angioplasty in his 50s Social History No tobacco or alcohol dependency Lives with her and 5 children Is a student Physical Exam Vital Signs Vital Signs Date Time Temp Pulse Resp B/P Pulse Ox O2 Delivery O2 Flow Rate FiO2 04/15/17 12:25 97 Room Air 04/15/17 12:25 68 04/15/17 12:25 97 Room Air 04/15/17 11:55 98.1 71 16 150/88 96 Physical Exam GENERAL: This is a well-nourished, well-developed patient, in no apparent distress. SKIN: No rashes, ecchymoses or lesions. Cool and dry. HEAD: Atraumatic. Normocephalic. No temporal or scalp tenderness. EYES: Pupils equal round and reactive. Extraocular motions intact. No scleral icterus. No injection or drainage. ENT: Nose without bleeding, purulent drainage or septal hematoma. Throat without erythema, tonsillar hypertrophy or exudate. Uvula midline. Airway patent. NECK: Trachea midline. No JVD or lymphadenopathy. Supple, nontender, no meningeal signs. CARDIOVASCULAR: Regular rate and rhythm without murmurs, gallops, or rubs. RESPIRATORY: Clear to auscultation. Breath sounds equal bilaterally. No wheezes , rales, or rhonchi. GASTROINTESTINAL: Abdomen soft, non-tender, nondistended. No hepato-splenomegaly , or palpable masses. No guarding. MUSCULOSKELETAL: Extremities without clubbing, cyanosis, or edema. No joint tenderness, effusion, or edema noted. No calf tenderness. Negative Homans sign bilaterally. NEUROLOGICAL: Awake and alert. Cranial nerves II through XII intact. Motor and sensory grossly within normal limits. Five out of 5 muscle strength in all muscle groups. Normal speech. Laboratory Laboratory Tests Test 04/15/17 12:35 White Blood Count 7.7 Red Blood Count 5.20 Hemoglobin 14.6 Hematocrit 43.5 Mean Corpuscular Volume 83.7 Mean Corpuscular Hemoglobin 28.0 Mean Corpuscular Hemoglobin 33.4 Concent Red Cell Distribution Width 12.3 Platelet Count 235 Mean Platelet Volume 8.8 Neutrophils (%) (Auto) 62.9 Lymphocytes (%) (Auto) 29.8 Monocytes (%) (Auto) 5.9 Eosinophils (%) (Auto) 0.9 Basophils (%) (Auto) 0.5 Neutrophils # (Auto) 4.8 Lymphocytes # (Auto) 2.3 Monocytes # (Auto) 0.5 Eosinophils # (Auto) 0.1 Basophils # (Auto) 0.0 CBC Comment DIFF FINAL Differential Comment Prothrombin Time 10.7 Prothromb Time International 1.0 Ratio Activated Partial 25.4 Thromboplast Time Sodium Level 141 Potassium Level 4.0 Chloride Level 105 Carbon Dioxide Level 28.8 Anion Gap 7 Blood Urea Nitrogen 13 Creatinine 0.83 Estimat Glomerular Filtration 74 Rate Random Glucose 88 Calcium Level 8.7 Magnesium Level 2.3 Total Creatine Kinase 94 Troponin I LESS THAN 0.02 Result Diagram: 04/15/17 1235 04/15/17 1235 Imaging Last Impressions Chest X-Ray 04/15/17 1217 Signed Impressions: Service Date/Time: Saturday, April 15, 2017 12:27 - CONCLUSION: No acute cardiopulmonary disease. Janna Mckeon MD Assessment and Plan Problem List: (1) Chest pain ICD Code: R07.9 Status: Acute Plan: Atypical in nature Admitted to chest pain center for further testing Risk factors: include family history of premature cardiac disease in her brother Problem Qualifiers (1) Chest pain: Qualified Code: R07.9 - Chest pain, unspecified type Shiela Mcconnell MD Apr 15, 2017 14:51
[2017-04-15 14:55] VITALS: BP 116/79; PULSE 67; RESP 14; O2SAT 99
[2017-04-15 16:08] LABS: CREATINE KINASE 85 U/L (26-192)
[2017-04-15 20:00] VITALS: BP 112/62; PULSE 60; RESP 16; TEMP 97.4; O2SAT 97
[2017-04-15 20:30] LABS: CREATINE KINASE 86 U/L (26-192)
[2017-04-15] MEDS: SODIUM CHLORIDE 0.9% FLUSH 10 ML FLUSH IV FLUSH SCH (20:46)
[2017-04-15 21:03] VITALS: O2SAT 97
[2017-04-16] VITALS: BP 119/73; PULSE 62; RESP 16; TEMP 97.4; O2SAT 97
[2017-04-16 04:00] VITALS: BP 111/74; PULSE 64; RESP 16; TEMP 97.4; O2SAT 98
[2017-04-16 08:00] VITALS: BP 117/74; PULSE 59; RESP 17; TEMP 97.9; O2SAT 96
[2017-04-16] MEDS: SODIUM CHLORIDE 0.9% FLUSH 10 ML FLUSH IV FLUSH SCH (09:32)
--- NOTE | 2017-04-16 09:43 | EKG ---
Date Performed: 04/15/2017 Time Performed: 18:20:08 PTAGE: 46 years EKG: Sinus rhythm INFERIOR MYOCARDIAL INFARCTION ABNORMAL ECG Since PREVIOUS TRACING , no significant change noted PREVIOUS TRACIN04/15/2017 11.53 DOCTOR: Lety Gunter Interpretating Date/Time 04/16/2017 09:43:24
--- NOTE | 2017-04-16 09:44 | EKG ---
Date Performed: 04/15/2017 Time Performed: 15:31:26 PTAGE: 46 years EKG: Sinus rhythm INFERIOR MYOCARDIAL INFARCTION ABNORMAL ECG Since previous tracing, no significant change noted NO PREVIOUS TRACING DOCTOR: Lety Gunter Interpretating Date/Time 04/16/2017 09:44:08
--- NOTE | 2017-04-16 09:45 | EKG ---
Date Performed: 04/15/2017 Time Performed: 11:53:04 PTAGE: 46 years EKG: Sinus rhythm NORMAL ECG Since PREVIOUS TRACING , no significant change noted DOCTOR: Lety Gunter Interpretating Date/Time 04/16/2017 09:45:05
--- NOTE | 2017-04-16 10:28 | HHI.DCPOC ---
Discharge Care Plan Diagnosis: (1) Chest pain Goals to Promote Your Health * To prevent worsening of your condition and complications * To maintain your health at the optimal level Directions to Meet Your Goals Take your medications as prescribed Follow your dietary instruction Follow activity as directed Keep your appointments as scheduled Take your immunizations and boosters as scheduled If your symptoms worsen call your PCP, if no PCP go to Urgent Care Center or Emergency Room Smoking is Dangerous to Your Health. Avoid second hand smoke Call the 24-hour hour crisis hotline for domestic abuse at Shiela Mcconnell MD Apr 16, 2017 10:27
--- NOTE | 2017-04-16 10:29 | HHI.DS ---
Discharge Summary Admission Date Apr 15, 2017 at 13:33 Discharge Date: Apr 16, 2017 Admitting Diagnosis Chest Pain (1) Chest pain ICD Code: R07.[address] exercise Brief History - From Admission This is a 46-year-old female with minimal past medical history who has come in with 2 days of chest discomfort. She reports increasing psychosocial stressors with her family. Patient has no nausea or vomiting but reports "wavelike "fatigue accompanying her chest discomfort. The chest discomfort is not described as pain but most closely resembles pressure per patient. It is resolved with sleep and patient feels she may have increased anxiety due to her psychosocial stressors. She has a history of sleep apnea but is not under treatment. There is no previous diagnosis of diabetes or hypertension and the patient takes no wuhk-qhi-zxhsjnt or prescribed medications. EKG on my review is sinus and rhythm without any ischemic changes or reciprocal changes indicating any ischemia. Patient's cardiac enzymes and other laboratories appear within normal limits. Chest x-ray is unremarkable my review. Patient is recommended for further evaluation in the chest pain center due to atypical symptoms of chest discomfort and a family history of premature cardiac disease. CBC/BMP: 04/15/17 1235 04/15/17 1235 Significant Findings Laboratory Tests Test 04/15/17 04/15/17 04/15/17 12:35 15:35 19:41 Estimat Glomerular Filtration 74 ML/MIN (>89) Rate Troponin I LESS THAN 0.02 LESS THAN 0.02 LESS THAN 0.02 NG/ML NG/ML NG/ML (0.02-0.05) (0.02-0.05) (0.02-0.05) Imaging Last Impressions Chest X-Ray 04/15/17 1217 Signed Impressions: Service Date/Time: Saturday, April 15, 2017 12:27 - CONCLUSION: No acute cardiopulmonary disease. Janna Mckeon MD PE at Discharge GENERAL: This is a well-nourished, well-developed patient, in no apparent distress. CARDIOVASCULAR: Regular rate and rhythm without murmurs, gallops, or rubs. RESPIRATORY: Clear to auscultation. Breath sounds equal bilaterally. No wheezes , rales, or rhonchi. GASTROINTESTINAL: Abdomen soft, non-tender, nondistended. Normal active bowel sounds MUSCULOSKELETAL: Extremities without clubbing, cyanosis, or edema. NEURO: Alert & Oriented x4 to person, place, time, situation. Moves all ext x4 Pt update on day of discharge Seen and evaluated today in follow-up for atypical chest pain. Exercise stress test completed. Negative for ischemia Hospital Course Patient is a 46-year-old female who came in with increasing anxiety and psychosocial stressors. She did have chest pain which was concerning for possible acute coronary syndrome. She did have a stress test which was negative and patient was discharged home Pt Condition on Discharge: Good Discharge Disposition: Discharge Home Discharge Time: > 30 minutes Discharge Instructions DIET: Follow Instructions for: As Tolerated, No Restrictions Activities you can perform: Regular-No Restrictions Shiela Mcconnell MD Apr 16, 2017 10:29
[2017-04-16 11:01] LABS: AMPHETAMINE, URINE NEG (NEG); BARBITURATES, URINE NEG (NEG); COCAINE, URINE NEG (NEG)
--- NOTE | 2017-04-22 07:28 | TR ---
Date Performed: 04/16/2017 Time Performed: 08:47:44 DOCTOR: Lety Gunter DRUG LIST: CLINICAL HISTORY: CHEST PAIN REASON FOR TEST: Chest pain REASON FOR ENDING: Completed Protocol OBSERVATION: Chest Pain: None Arrhythmia: None CONCLUSION: Patient tolerated LAZARUS protocol with Total Exercise Time=6:00 Maximum KQ=460 Max H R Achieved=89.0% Maximum DU=402/82, Testing stopped secondary to goals acheived, patient reached targ et HR. During peak exercise, patient was asymptomatic, Quick upsloping ST segments. HR and BP appropr iate response to exercise. Recovery period, patient asymptomatic, HR and BP returned to baseline COMMENTS:
== END 2017-04-16 11:32 | disposition home or self-care (01) ==
LOC: PHED 11:48 → PHEDA 13:33 → PH5A 16:32
PROVIDERS: ADMIT Hospitalist; ATTEND Hospitalist
DX: R07.89 Other chest pain (principal); F32.9 Major depressive disorder, single episode, unspecified; G47.30 Sleep apnea, unspecified; F41.9 Anxiety disorder, unspecified; R94.31 Abnormal electrocardiogram [ECG] [EKG]; Z82.49 Family history of ischemic heart disease and other diseases of the circulatory system
CPT/HCPCS: 71010; 80048; 80307; 82550; 83735; 84484; 85025; 85610; 85730; 93005; 93017; 99285; G0378

== ENCOUNTER 2017-05-31 15:37 | Emergency (ER) | payer MEDICAID ==
[~2017-05-31] VITALS: Ht 170.2 cm; Wt 122.5 kg
[2017-05-31 15:39] VITALS: BP 141/66; PULSE 76; RESP 18; TEMP 100.5; O2SAT 97
[2017-05-31] MEDS ORDERED: PENI500T PO (16:35)
--- NOTE | 2017-05-31 16:36 | PD ---
HPI Chief Complaint: ENT Complaint Time Seen by Provider: 16:00 Travel History International Travel<30 days: No Contact w/Intl Traveler<30days: No Traveled to known affect area: No History of Present Illness HPI 46-year-old female presents emergency department for evaluation of sore throat and subjective fever 2 days. Patient reports both daughters strep pharyngitis. Patient reports pain with swallowing although does not have difficulty with eating, drinking, swallowing secretions. No change in voice. Symptom severity is mild. No aggravating or alleviating factors. Pain scale 4/ 10. PFSH Past Medical History Arthritis: Yes Autoimmune Disease: No Blood Disorders: No Anxiety: Yes Depression: Yes Heart Rhythm Problems: Yes (Reports arrhythmia, doesn't know which one.) Cancer: No Cardiovascular Problems: Yes (ARRYTHMIA) Chemotherapy: No Diminished Hearing: No Endocrine: No Gastrointestinal Disorders: No Genitourinary: No Headaches: Yes Herniated Disk: Yes (X's 3) Musculoskeletal: Yes (Chronic pain left knee and right ankle) Neurologic: Yes Psychiatric: Yes Reproductive: Yes Respiratory: No Immunizations Current: Yes Migraines: Yes Radiation Therapy: No Influenza Vaccination: Yes ?: Not : 3 Para: 3 Ovarian Cysts: Yes (Ruputured left fallopian tube/removed) Tubal Ligation: Yes Past Surgical History Abdominal Surgery: Yes Section: Yes Ear Surgery: No Eye Surgery: No Gynecologic Surgery: Yes (c section, tubaligation) Oral Surgery: No Other Surgery: Yes Social History Alcohol Use: Yes (Occ.) Tobacco Use: No Substance Use: No Allergies-Medications (Allergen,Severity, Reaction): Coded Allergies: No Known Allergies (Verified , 05/31/17) Reported Meds & Prescriptions Reported Meds & Active Scripts Active No Active Prescriptions or Reported Medications Review of Systems Except as stated in HPI: all other systems reviewed are Neg General / Constitutional: Positive: Fever HENT: Positive: Sore Throat Physical Exam Narrative GENERAL: Well-nourished, well-developed patient. SKIN: Focused skin assessment warm/dry. HEAD: Normocephalic. EYES: No scleral icterus. No injection or drainage. THROAT: Pharyngeal erythema. Tonsillar swelling with exudate. Uvula is midline. Airway is patent. Normal phonation. NECK: Supple, trachea midline. No JVD or lymphadenopathy. CARDIOVASCULAR: Regular rate and rhythm without murmurs, gallops, or rubs. RESPIRATORY: Breath sounds equal bilaterally. No accessory muscle use. Data Data Last Documented VS Vital Signs Date Time Temp Pulse Resp B/P (MAP) Pulse Ox O2 Delivery O2 Flow Rate FiO2 05/31/17 15:39 100.5 76 18 141/66 (91) 97 MDM Medical Decision Making Medical Screen Exam Complete: Yes Emergency Medical Condition: Yes Differential Diagnosis Strep pharyngitis, viral pharyngitis, mononucleosis Narrative Course 46-year-old female presents emergency department for evaluation of sore throat and fever 2 days. Patient reports both daughters strep pharyngitis. Patient' s physical exam is reassuring. She is nontoxic appearing. Patient will be treated for pharyngitis. Diagnosis Primary Impression: Pharyngitis Qualified Codes: J02.9 - Acute pharyngitis, unspecified Referrals: Primary Care Physician Additional Instructions: Take the medication as prescribed. Take [id number] Motrin and/or Tylenol as needed for pain or fever. Stay well hydrated by drinking plenty fluids. Scripts Penicillin V Potassium (Penicillin V Potassium) 500 Mg Tab 500 MG PO Q12HR for Infection for 10 Days, TAB 0 Refills Prov: Sanjuana Forte 05/31/17 Disposition: 01 DISCHARGE HOME Condition: Stable Sanjuana Forte May 31, 2017 16:36
== END 2017-05-31 17:08 | disposition home or self-care (01) ==
LOC: PHEFT 15:37
DX: J02.9 Acute pharyngitis, unspecified (principal)
CPT/HCPCS: 99283

== ENCOUNTER 2017-07-04 04:15 | Emergency (ER) | payer MEDICAID ==
[~2017-07-04] VITALS: Ht 170.2 cm; Wt 145.2 kg
[~2017-07-04 04:15] MED LIST changes: -BACT800T5 PO; +PENI500T PO
[2017-07-04 04:21] VITALS: BP 139/67; PULSE 75; RESP 12; TEMP 99.3; O2SAT 98
--- NOTE | 2017-07-04 04:52 | PD ---
HPI Chief Complaint: ENT Complaint Time Seen by Provider: 04:28 Travel History International Travel<30 days: No Contact w/Intl Traveler<30days: No Traveled to known affect area: No History of Present Illness HPI The patient is a 46-year-old female that complains of sore throat and bilateral ear pain tonight for about 6 hours. She denies any fever. She denies any cough or chest pain. She has been in the emergency department multiple times for sore throat and often gets a prescription for penicillin but she has never had a throat culture. PFSH Past Medical History Arthritis: Yes Autoimmune Disease: No Blood Disorders: No Anxiety: Yes Depression: Yes Heart Rhythm Problems: Yes (Reports arrhythmia, doesn't know which one.) Cancer: No Cardiovascular Problems: Yes (ARRYTHMIA) Chemotherapy: No Diminished Hearing: No Endocrine: No Gastrointestinal Disorders: No Genitourinary: No Headaches: Yes Herniated Disk: Yes (X's 3) Musculoskeletal: Yes (Chronic pain left knee and right ankle) Neurologic: Yes Psychiatric: Yes Reproductive: Yes Respiratory: No Immunizations Current: Yes Migraines: Yes Radiation Therapy: No Tetanus Vaccination: > 5 Years Influenza Vaccination: No ?: Not LMP: APRIL 2017 : 3 Para: 3 Ovarian Cysts: Yes (Ruputured left fallopian tube/removed) Tubal Ligation: Yes Past Surgical History Abdominal Surgery: Yes Section: Yes Ear Surgery: No Eye Surgery: No Gynecologic Surgery: Yes (c section, tubaligation) Oral Surgery: No Other Surgery: Yes Social History Alcohol Use: Yes (Occ.) Tobacco Use: No Substance Use: No Allergies-Medications (Allergen,Severity, Reaction): Coded Allergies: No Known Allergies (Verified , 07/04/17) Reported Meds & Prescriptions Reported Meds & Active Scripts Active Prednisone 50 Mg Tab 50 Mg PO DAILY 5 Days Review of Systems Except as stated in HPI: all other systems reviewed are Neg Physical Exam Narrative GENERAL: The patient is alert, oriented 3 in minimal apparent distress with her sore throat. Her vital signs show temperature 99.3 but otherwise normal. She is in no respiratory distress. SKIN: Focused skin assessment warm/dry. HEAD: Atraumatic. Normocephalic. EYES: Pupils equal and round. No scleral icterus. No injection or drainage. ENT: No nasal bleeding or discharge. Mucous membranes pink and moist. The tympanic membranes are clear and the throat is clear with out erythema, exudate or abscess. NECK: Trachea midline. No JVD. CARDIOVASCULAR: Regular rate and rhythm. No murmur appreciated. RESPIRATORY: No accessory muscle use. Clear to auscultation. Breath sounds equal bilaterally. GASTROINTESTINAL: Abdomen soft, non-tender, nondistended. Hepatic and splenic margins not palpable. MUSCULOSKELETAL: No obvious deformities. No clubbing. No cyanosis. No edema. NEUROLOGICAL: Awake and alert. No obvious cranial nerve deficits. Motor grossly within normal limits. Normal speech. PSYCHIATRIC: Appropriate mood and affect; insight and judgment normal. Data Data Last Documented VS Vital Signs Date Time Temp Pulse Resp B/P (MAP) Pulse Ox O2 Delivery O2 Flow Rate FiO2 07/04/17 04:33 76 14 07/04/17 04:21 99.3 139/67 (91) 98 Orders Orders Group A Rapid Strep Screen (07/04/17 04:42) Strep Culture (Group A) (07/04/17 04:40) Prednisone (Deltasone) (07/04/17 05:30) MDM Medical Decision Making Medical Screen Exam Complete: Yes Emergency Medical Condition: Yes Medical Record Reviewed: Yes Interpretation(s) The strep screen is negative for group A strep antigen. Differential Diagnosis Viral syndrome, strep pharyngitis, viral pharyngitis, peritonsillar abscess, otitis media, otitis externa Narrative Course This is the first time the patient has been tested for strep on our hospital system. It is negative and this is likely a viral pharyngitis. Clinically, the patient has a viral pharyngitis. She likely has a serous otitis media with occlusion of the eustachian tube and pressure difference across the tympanic membrane. No fluid was seen behind the tympanic membranes however. Diagnosis Primary Impression: Viral pharyngitis Additional Instructions: Warm saltwater gargles are sometimes useful. The prednisone is taken one tablet daily for 5 days. We will give you the first dose tonight. Follow-up with your primary care physician next week. Med/Other Pt SpecificInfo: Prescription(s) given Scripts Prednisone (Prednisone) 50 Mg Tab 50 MG PO DAILY for 5 Days, #5 TAB 0 Refills Prov: Freddy Liao MD 07/04/17 Disposition: 01 DISCHARGE HOME Condition: Stable Freddy Liao MD Jul 04, 2017 04:52
[2017-07-04] MEDS ORDERED: PRED50 PO (05:23)
[2017-07-04] MEDS ORDERED: predniSONE 20 MG TAB PO ONE (05:30)
[2017-07-04 05:35] VITALS: BP 135/78
== END 2017-07-04 05:40 | disposition home or self-care (01) ==
LOC: PHED 04:15
DX: J02.9 Acute pharyngitis, unspecified (principal)
CPT/HCPCS: 87081; 87880; 99283; J7512

== ENCOUNTER 2017-08-29 07:16 | Emergency (ER) | payer MEDICAID ==
[~2017-08-29] VITALS: Ht 170.2 cm; Wt 122.5 kg
[~2017-08-29 07:16] MED LIST changes: -PENI500T PO; +PRED50 PO
[2017-08-29 07:22] VITALS: BP 133/76; PULSE 64; RESP 16; TEMP 97.9; O2SAT 97
--- NOTE | 2017-08-29 07:42 | PD ---
HPI Chief Complaint: Room spinning Time Seen by Provider: 07:32 Travel History International Travel<30 days: No Contact w/Intl Traveler<30days: No Traveled to known affect area: No History of Present Illness HPI 46yo F with PMH of chronic bilateral tinnitus presents to the ED with c/o room spinning and nausea for 1 hour. Said it is worst with head movement. Pt did not have any history of vertigo. Denies any fever, chest pain, sob, n/v, abdominal pain,urinary complaints, focal weakness or numbness. Pt did feel a little clammy. PFSH Past Medical History Arthritis: Yes Autoimmune Disease: No Blood Disorders: No Anxiety: Yes Depression: Yes Heart Rhythm Problems: Yes (Reports arrhythmia, doesn't know which one.) Cancer: No Cardiovascular Problems: Yes (ARRYTHMIA) Chemotherapy: No Diminished Hearing: No Endocrine: No Gastrointestinal Disorders: No Genitourinary: No Headaches: Yes Herniated Disk: Yes (X's 3) Musculoskeletal: Yes (Chronic pain left knee and right ankle, left rotator cuff tear) Neurologic: Yes Psychiatric: Yes Reproductive: Yes Respiratory: No Immunizations Current: Yes Migraines: Yes Radiation Therapy: No Tetanus Vaccination: > 5 Years ?: Not LMP: 08/25/2017 : 2 Para: 2 Ovarian Cysts: Yes (Ruputured left fallopian tube from abscess/removed) Tubal Ligation: Yes Past Surgical History Abdominal Surgery: Yes Section: Yes (X1) Ear Surgery: No Eye Surgery: No Gynecologic Surgery: Yes (c section, tubaligation) Oral Surgery: No Other Surgery: Yes Social History Alcohol Use: Yes (Occ.) Tobacco Use: No (never) Substance Use: No Allergies-Medications (Allergen,Severity, Reaction): Coded Allergies: No Known Allergies (Verified Adverse Reaction, Unknown, 08/29/17) Reported Meds & Prescriptions Reported Meds & Active Scripts Active No Active Prescriptions or Reported Medications Review of Systems Except as stated in HPI: all other systems reviewed are Neg Physical Exam Narrative GENERAL: 46yo F in mild distress. SKIN: Focused skin assessment warm/dry. HEAD: Atraumatic. Normocephalic. EYES: Pupils equal and round at 3mm bilaterally. Right horizontal nystagmus. ENT: No nasal bleeding or discharge. Mucous membranes pink and moist. NECK: Trachea midline. No JVD. CARDIOVASCULAR: Regular rate and rhythm. No murmur appreciated. RESPIRATORY: No accessory muscle use. Clear to auscultation. Breath sounds equal bilaterally. GASTROINTESTINAL: Abdomen soft, non-tender, nondistended. MUSCULOSKELETAL: No obvious deformities. No clubbing. No cyanosis. No edema. NEUROLOGICAL: Awake and alert. No obvious cranial nerve deficits. Motor grossly within normal limits. Normal speech. Sensation intact and equal. PSYCHIATRIC: Appropriate mood and affect; insight and judgment normal. Data Data Last Documented VS Vital Signs Date Time Temp Pulse Resp B/P (MAP) Pulse Ox O2 Delivery O2 Flow Rate FiO2 08/29/17 09:20 57 16 118/63 (81) 98 Room Air 08/29/17 07:22 97.9 Orders Orders Meclizine (Antivert) (08/29/17 07:45) Ondansetron Odt (Zofran Odt) (08/29/17 07:45) Electrocardiogram (08/29/17 ) Ct Brain W/O Iv Contrast(Rout) (08/29/17 ) Ed Urine Pregnancytest Poc (08/29/17 08:40) Meclizine (Antivert) (08/29/17 09:45) Diazepam (Valium) (08/29/17 09:45) Ed Discharge Order (08/29/17 10:09) [facility] Medical Decision Making Medical Screen Exam Complete: Yes Emergency Medical Condition: Yes Interpretation(s) EKG: Sinus bradycardia at 56bpm. LAD. Q wave III, aVF which is unchanged from 03/2017. Differential Diagnosis Benign peripheral vertigo vs. menieres vs. labrynitis Narrative Course 46yo F presents to symptoms consistent with peripheral vertigo. Pt given meclizine 25mg PO and zofran. Reevaluated at bedside and said nausea has resolve but the spinning is still there. Tinnitus is left ear feels worst. Urine negative. CT brain negative. Will give another dose of meclizine and add valium. Pt reevaluated after medications and said she feels much better. Spinning has improved. Tolerating PO. Will have pt follow up with ENT. Diagnosis Primary Impression: Vertigo Referrals: Bruce Pacheco MD call for appointment Vertigo symptoms Patient Instructions: General Instructions Departure Forms: Tests/Procedures Additional Instructions: Please follow up with ENT as outpatient. Return to the ED if symptoms worsen. Med/Other Pt SpecificInfo: Prescription(s) given Scripts Meclizine (Meclizine) 25 Mg Tab 25 MG PO TID Y for VERTIGO, #7 TAB 0 Refills Prov: Aster Francis DO 08/29/17 Disposition: 01 DISCHARGE HOME Condition: Stable Aster Francis DO Aug 29, 2017 07:41
[2017-08-29] MEDS ORDERED: MECLIZINE HCL 25 MG TAB PO ONE ×2 (07:45→09:45)
[2017-08-29] MEDS ORDERED: ONDANSETRON ODT 4 MG TAB PO ONE (07:45)
[2017-08-29 08:42] VITALS: BP 139/68; PULSE 56; RESP 16; O2SAT 98
[2017-08-29 09:20] VITALS: BP 118/63; PULSE 57; RESP 16; O2SAT 98
--- NOTE | 2017-08-29 09:26 | RADRPT ---
EXAM DATE/TIME: 08/29/2017 09:00 [facility] COMPARISON: CT BRAIN W/O CONTRAST, November 17, 2014, 4:36. INDICATIONS : Dizziness and nausea. RADIATION DOSE: 61.78 CTDIvol (mGy) MEDICAL HISTORY : None SURGICAL HISTORY : Tubal ligation. section. ENCOUNTER: Initial ACUITY: 1 day PAIN SCALE: 0/10 LOCATION: cranial TECHNIQUE: Multiple contiguous axial images were obtained of the head. Using automated exposure control and adj ustment of the mA and/or kV according to patient size, radiation dose was kept as low as reasonably a chievable to obtain optimal diagnostic quality images. DICOM format image data is available electro nically for review and comparison. FINDINGS: CEREBRUM: The ventricles are normal for age. No evidence of midline shift, mass lesion, hemorrhage or acute in farction. No extra-axial fluid collections are seen. POSTERIOR FOSSA: The cerebellum and brainstem are intact. The 4th ventricle is midline. The cerebellopontine angle i s unremarkable. EXTRACRANIAL: The visualized portion of the orbits is intact. SKULL: The calvaria is intact. No evidence of skull fracture. CONCLUSION: 1. No acute intracranial abnormality. Urbano Mcfarlane MD on August 29, 2017 at 9:22 Board Certified Radiologist. This report was verified electronically.
[2017-08-29] MEDS ORDERED: DIAZEPAM 5 MG TAB PO ONE (09:45)
[2017-08-29] MEDS ORDERED: MECL-62 PO (10:10)
[2017-08-29 10:20] VITALS: BP 118/63; PULSE 59; RESP 16; O2SAT 98
--- NOTE | 2017-08-29 14:11 | EKG ---
Date Performed: 08/29/2017 Time Performed: 07:45:04 PTAGE: 46 years EKG: SINUS BRADYCARDIA INFERIOR MYOCARDIAL INFARCTION ABNORMAL ECG Compared to prior tracing no significant change PREVIOUS TRACING : 04/15/2017 18.20 DOCTOR: Elodia Dhaliwal Interpretating Date/Time 08/29/2017 14:09:38
== END 2017-08-29 11:02 | disposition home or self-care (01) ==
LOC: PHED 07:16
DX: R42 Dizziness and giddiness (principal); R11.0 Nausea
CPT/HCPCS: 70450; 84703; 93005; 99284

== ENCOUNTER 2017-09-03 03:15 | Emergency (ER) | payer MEDICAID ==
[~2017-09-03] VITALS: Ht 170.2 cm; Wt 122.4 kg
[~2017-09-03 03:15] MED LIST changes: +MECL-62 PO; -PRED50 PO
[2017-09-03 03:21] VITALS: BP 148/76; PULSE 63; RESP 20; TEMP 98.6; O2SAT 97
[2017-09-03 04:00] VITALS: BP 107/57; PULSE 60; RESP 18; O2SAT 96
[2017-09-03] MEDS ORDERED: SODIUM CHLOR 0.9% 1000 ML INJ 1,000 ML IV ONE (04:01)
[2017-09-03] MEDS ORDERED: SODIUM CHLORIDE 0.9% FLUSH 10 ML FLUSH IVF PRN (04:15)
[2017-09-03] MEDS ORDERED: ACETAMINOPHEN 325 MG TAB PO ONE (04:15)
[2017-09-03] MEDS ORDERED: ONDANSETRON HCL 4 MG/2 ML VIAL IVP ONE (04:15)
[2017-09-03 04:22] LABS: AUTOMATED NEUTROPHIL # 5.1 TH/MM3 (1.8-7.7); BASOPHIL % 0.4 % (0.0-2.0); EOSINOPHIL # 0.1 TH/MM3 (0-0.4); EOSINOPHIL % 1.8 % (0.0-4.0); HEMOGLOBIN 14.9 GM/DL (11.6-15.3); LYMPH % 29.2 % (9.0-44.0); LYMPHOCYTE # 2.4 TH/MM3 (1.0-4.8); MEAN CELL VOLUME 86.7 FL (80.0-100.0); MEAN CORPUSCULAR HEMOGLOBIN 27.5 PG (27.0-34.0); MEAN CORPUSCULAR HGB CONC 31.8 % (32.0-36.0); MEAN PLATELET VOLUME 8.9 FL (7.0-11.0); MONO % 6.1 % (0.0-8.0); MONOCYTE # 0.5 TH/MM3 (0-0.9); NEUT % 62.5 % (16.0-70.0); PLATELET COUNT 228 TH/MM3 (150-450); RED BLOOD COUNT 5.42 MIL/MM3 (4.00-5.30); WHITE BLOOD COUNT 8.1 TH/MM3 (4.0-11.0)
[2017-09-03 04:23] LABS: BILIRUBIN, URINE NEG (NEG); BLOOD, URINE TRACE (NEG); GLUCOSE,URINE NEG (NEG); KETONE, URINE NEG (NEG); NITRITE,URINE NEG (NEG); PH, URINE 5.5 (5.0-8.5); URINE LEUKOCYTE ESTERASE NEG (NEG)
[2017-09-03 04:29] LABS: CHLORIDE 106 MEQ/L (98-107); SODIUM (NA) 141 MEQ/L (136-145)
[2017-09-03 04:30] VITALS: PULSE 60; RESP 18; O2SAT 96
[2017-09-03 04:31] LABS: CALCIUM 8.3 MG/DL (8.5-10.1)
[2017-09-03 04:32] LABS: BICARBONATE 27.7 MEQ/L (21.0-32.0); BLOOD UREA NITROGEN 16 MG/DL (7-18); GLUCOSE,RANDOM 110 MG/DL (74-106); MAGNESIUM 2.2 MG/DL (1.5-2.5)
[2017-09-03 04:35] LABS: CREATININE 0.82 MG/DL (0.50-1.00); GLOMERULAR FILTRATION RATE 75 ML/MIN (>89)
[2017-09-03 04:40] LABS: MUCUS URINE MOD /lpf (OCC); URINE COLOR YELLOW (YELLW/STRAW)
[2017-09-03 04:40] LABS: TROPONIN I LESS THAN 0.02 NG/ML (0.02-0.05)
[2017-09-03 04:41] LABS: RBC, URINE 0-3 /hpf (0-3); WBC, URINE 0-2 /hpf (0-5)
[2017-09-03 04:43] LABS: AMORPHOUS SEDIMENT, URINE SMALL; BACTERIA, URINE FEW /hpf
[2017-09-03 05:00] VITALS: BP 110/67; PULSE 64; RESP 16; O2SAT 98
--- NOTE | 2017-09-03 05:10 | PD ---
HPI Chief Complaint: Headache Time Seen by Provider: 03:46 Travel History International Travel<30 days: No Contact w/Intl Traveler<30days: No Traveled to known affect area: No History of Present Illness HPI Patient's 46 years old and complains of vertigo. She was diagnosed here of vertigo about 6 days ago. She took meclizine home and reports 50 mg can be helpful at times. She complains of a vague sense of confusion as if she is not able to focus and as she describes it "like my brain is working extra hard to focus." No fever. Occasional nausea reported. Vertigo was initially very severe when the patient awoke from sleep and has since occurred intermittently however markedly less severe. PFSH Past Medical History Arthritis: Yes Autoimmune Disease: No Blood Disorders: No Anxiety: Yes Depression: Yes Heart Rhythm Problems: Yes (Reports arrhythmia, doesn't know which one.) Cancer: No Cardiovascular Problems: Yes (ARRYTHMIA) Chemotherapy: No Diminished Hearing: No Endocrine: No Gastrointestinal Disorders: No Genitourinary: No Headaches: Yes Herniated Disk: Yes (X's 3) Musculoskeletal: Yes (Chronic pain left knee and right ankle, left rotator cuff tear) Neurologic: Yes Psychiatric: Yes Reproductive: Yes Respiratory: No Immunizations Current: Yes Migraines: Yes Radiation Therapy: No Tetanus Vaccination: > 5 Years Influenza Vaccination: No ?: Not : 2 Para: 2 Ovarian Cysts: Yes (Ruputured left fallopian tube from abscess/removed) Tubal Ligation: Yes Past Surgical History Abdominal Surgery: Yes Section: Yes (X1) Ear Surgery: No Eye Surgery: No Gynecologic Surgery: Yes (c section, tubaligation) Oral Surgery: No Other Surgery: Yes Social History Alcohol Use: Yes (Occ.) Tobacco Use: No (never) Substance Use: No Allergies-Medications (Allergen,Severity, Reaction): Coded Allergies: No Known Allergies (Verified Adverse Reaction, Unknown, 09/03/17) Reported Meds & Prescriptions Reported Meds & Active Scripts Active Meclizine (Meclizine HCl) 25 Mg Tab 25 Mg PO TID PRN Review of Systems Except as stated in HPI: all other systems reviewed are Neg General / Constitutional: No: Fever Physical Exam Narrative GENERAL: 46-year-old female well-nourished well-developed mild to moderate distress secondary to anxiety and/or tinnitus SKIN: Focused skin assessment warm/dry. HEAD: Atraumatic. Normocephalic. EYES: Pupils equal and round. No scleral icterus. No injection or drainage. ENT: No nasal bleeding or discharge. Mucous membranes pink and moist. Tympanic membranes pink dry and intact normal. NECK: Trachea midline. No JVD. CARDIOVASCULAR: Regular rate and rhythm. No murmur appreciated. RESPIRATORY: No accessory muscle use. Clear to auscultation. Breath sounds equal bilaterally. GASTROINTESTINAL: Abdomen soft, non-tender, nondistended. Hepatic and splenic margins not palpable. MUSCULOSKELETAL: No obvious deformities. No clubbing. No cyanosis. No edema. NEUROLOGICAL: Awake and alert. No obvious cranial nerve deficits. Motor grossly within normal limits. Normal speech. PSYCHIATRIC: Appropriate mood and affect; insight and judgment normal. Data Data Last Documented VS Vital Signs Date Time Temp Pulse Resp B/P (MAP) Pulse Ox O2 Delivery O2 Flow Rate FiO2 09/03/17 05:45 09/03/17 05:00 64 16 98 Room Air 09/03/17 03:21 98.6 vital signs reviewed Orders Orders Basic Metabolic Panel (Bmp) (09/03/17 04:01) Complete Blood Count With Diff (09/03/17 04:01) Magnesium (Mg) (09/03/17 04:01) Ckmb (Isoenzyme) Profile (09/03/17 04:01) Troponin I (09/03/17 04:01) Urinalysis - C+S If Indicated (09/03/17 04:01) Blood Glucose (09/03/17 04:01) Ecg Monitoring (09/03/17 04:01) Iv Access Insert/Monitor (09/03/17 04:01) Oximetry (09/03/17 04:01) Ondansetron Inj (Zofran Inj) (09/03/17 04:15) Sodium Chloride 0.9% Flush (Ns Flush) (09/03/17 04:15) Sodium Chlor 0.9% 1000 Ml Inj (Ns 1000 M (09/03/17 04:01) Acetaminophen (Tylenol) (09/03/17 04:15) CKMB (09/03/17 04:15) CKMB% (09/03/17 04:15) Ed Discharge Order (09/03/17 05:10) Labs Laboratory Tests Test 09/03/17 04:05 09/03/17 04:15 Urine Color YELLOW Urine Turbidity SLIGHT Urine pH 5.5 Urine Specific [place] 1.027 Urine Protein NEG mg/dL Urine Glucose (UA) NEG mg/dL Urine Ketones NEG mg/dL Urine Occult Blood TRACE Urine Nitrite NEG Urine Bilirubin NEG Urine Leukocyte Esterase NEG Urine RBC 0-3 /hpf Urine WBC 0-2 /hpf Urine Squamous Epithelial Cells 6-8 /hpf Urine Amorphous Sediment SMALL Urine Bacteria FEW /hpf Urine Mucus MOD /lpf Microscopic Urinalysis Comment CULT NOT INDICATED White Blood Count 8.1 TH/MM3 Red Blood Count 5.42 MIL/MM3 Hemoglobin 14.9 GM/DL Hematocrit 47.0 % Mean Corpuscular Volume 86.7 FL Mean Corpuscular Hemoglobin 27.5 PG Mean Corpuscular Hemoglobin Concent 31.8 % Red Cell Distribution Width 13.0 % Platelet Count 228 TH/MM3 Mean Platelet Volume 8.9 FL Neutrophils (%) (Auto) 62.5 % Lymphocytes (%) (Auto) 29.2 % Monocytes (%) (Auto) 6.1 % Eosinophils (%) (Auto) 1.8 % Basophils (%) (Auto) 0.4 % Neutrophils # (Auto) 5.1 TH/MM3 Lymphocytes # (Auto) 2.4 TH/MM3 Monocytes # (Auto) 0.5 TH/MM3 Eosinophils # (Auto) 0.1 TH/MM3 Basophils # (Auto) 0.0 TH/MM3 CBC Comment DIFF FINAL Differential Comment Blood Urea Nitrogen 16 MG/DL Creatinine 0.82 MG/DL Random Glucose 110 MG/DL Calcium Level 8.3 MG/DL Magnesium Level 2.2 MG/DL Sodium Level 141 MEQ/L Potassium Level 4.0 MEQ/L Chloride Level 106 MEQ/L Carbon Dioxide Level 27.7 MEQ/L Anion Gap 7 MEQ/L Estimat Glomerular Filtration Rate 75 ML/MIN Total Creatine Kinase 110 U/L Creatine Kinase MB 1.1 NG/ML Troponin I LESS THAN 0.02 NG/ML MDM Medical Decision Making Medical Screen Exam Complete: Yes Emergency Medical Condition: Yes Medical Record Reviewed: Yes Differential Diagnosis Vertigo, somatic disease, anxiety, stroke, Mnire's disease Narrative Course CBC & BMP Diagram 09/03/17 04:15 Calcium Level 8.3 L, Magnesium Level 2.2 Workup is reassuring. Blood pressure elevation has resolved. Diagnosis Primary Impression: Vertigo Additional Impressions: Cephalgia Qualified Codes: R51 - Headache Dissociative confusion Referrals: Primary Care Physician 2 days Med/Other Pt SpecificInfo: Prescription(s) given Disposition: 01 DISCHARGE HOME Condition: Stable Jus Nathan MD Sep 03, 2017 05:10
== END 2017-09-03 05:47 | disposition home or self-care (01) ==
LOC: PHED 03:15
DX: R42 Dizziness and giddiness (principal); R51 Headache; R41.0 Disorientation, unspecified
CPT/HCPCS: 80048; 81001; 82550; 82552; 83735; 84484; 85025; 96361; 96374; 99284; J2405; J7030

== ENCOUNTER 2018-02-06 19:19 | Emergency (ER) | payer MEDICAID ==
[~2018-02-06] VITALS: Ht 170.2 cm; Wt 129.3 kg
[2018-02-06 19:28] VITALS: BP 139/74; PULSE 70; RESP 20; TEMP 99; O2SAT 96
--- NOTE | 2018-02-06 20:47 | PD ---
HPI Chief Complaint: Injury Time Seen by Provider: 19:40 Travel History International Travel<30 days: No Contact w/Intl Traveler<30days: No Traveled to known affect area: No History of Present Illness HPI 47-year-old female presents to the emergency room for evaluation of left hip pain for the past 4 months. Patient is constant, burning in nature. Worse with certain range of motion and especially with ambulation. No radiation. She occasionally takes Aleve and Tylenol with mild relief in symptoms. She denies any trauma or injury to the area. Denies excessive use or alcohol consumption. Denies any other chronic medical conditions or daily medications. PFSH Past Medical History Arthritis: Yes Autoimmune Disease: No Blood Disorders: No Anxiety: Yes Depression: Yes Heart Rhythm Problems: Yes (Reports arrhythmia, doesn't know which one.) Cancer: No Cardiovascular Problems: Yes (ARRYTHMIA) Chemotherapy: No Diminished Hearing: Yes ([id number] BILAT) Endocrine: No Gastrointestinal Disorders: No Genitourinary: No Headaches: Yes Herniated Disk: Yes (X's 3) Musculoskeletal: Yes (Chronic pain left knee and right ankle, left rotator cuff tear) Neurologic: Yes Psychiatric: Yes Reproductive: Yes Respiratory: No Immunizations Current: Yes Migraines: Yes Radiation Therapy: No Tetanus Vaccination: > 5 Years Influenza Vaccination: Yes ?: Unknown LMP: 12/19/17 : 2 Para: 2 Ovarian Cysts: Yes (Ruputured left fallopian tube from abscess/removed) Tubal Ligation: Yes Past Surgical History Abdominal Surgery: Yes Section: Yes (X1) Ear Surgery: No Eye Surgery: No Gynecologic Surgery: Yes (c section, tubaligation) Oral Surgery: No Other Surgery: Yes Social History Alcohol Use: Yes (Occ.) Tobacco Use: No (never) Substance Use: No Allergies-Medications (Allergen,Severity, Reaction): Coded Allergies: No Known Allergies (Verified Adverse Reaction, Unknown, 02/06/18) Reported Meds & Prescriptions Reported Meds & Active Scripts Active Ultram (Tramadol HCl) 50 Mg Tab 50 Mg PO Q8H PRN 3 Days Review of Systems Except as stated in HPI: all other systems reviewed are Neg Physical Exam Narrative GENERAL: Well-nourished, morbidly obese female in no acute distress. Afebrile. Ambulatory. SKIN: Focused skin assessment warm/dry. HEAD: Normocephalic. EYES: No scleral icterus. No injection or drainage. NECK: Supple, trachea midline. No JVD or lymphadenopathy. CARDIOVASCULAR: Regular rate and rhythm without murmurs, gallops, or rubs. RESPIRATORY: Breath sounds equal bilaterally. No accessory muscle use. MUSCULOSKELETAL: No cyanosis, or edema. No tenderness to palpation of the left hip or left trochanteric area. Full range of motion of the left hip and leg. No shortening or rotation. 2+ dorsalis pedis pulse in the left. Minimal pain with lifting the leg. Data Data Last Documented VS Vital Signs Date Time Temp Pulse Resp B/P (MAP) Pulse Ox O2 Delivery O2 Flow Rate FiO2 02/06/18 19:28 99.0 70 20 139/74 (95) 96 Orders Orders Hip, Uni(Ap&Lat) W Ap Pelvis (02/06/18 ) Ed Discharge Order (02/06/18 22:13) [facility] Medical Decision Making Medical Screen Exam Complete: Yes Emergency Medical Condition: Yes Medical Record Reviewed: Yes Differential Diagnosis Arthritis, bursitis, tendinitis, avascular necrosis Narrative Course 47-year-old morbidly obese female presents to the emergency room for evaluation of left hip pain for the past 4 months. No trauma or injury. Physical exam is reassuring. Patient resting comfortably in bed. Left lower extremity is neurovascularly intact with 2+ dorsalis pedis pulse. She has full range of motion of the left hip and leg. X-ray is negative. Patient reassured and told to follow-up with a primary care physician for outpatient workup or return for worsening symptoms. She understands and agrees to plan. Diagnosis Primary Impression: Left hip pain Referrals: Primary Care Physician Additional Instructions: Rest and drink plenty of fluids.. Take ibuprofen with food as directed, as needed for pain. Apply ice to the affected area for 20 minutes at a time, as needed for pain and swelling. Follow-up with a primary care physician. Return to the emergency room for worsening symptoms. Scripts Tramadol (Ultram) 50 Mg Tab 50 MG PO Q8H Y for PAIN for 3 Days, #9 TAB 0 Refills Prov: Gerson Almanzar MD 02/06/18 Disposition: 01 DISCHARGE HOME Condition: Stable Elena López February 06, 2018 20:47
--- NOTE | 2018-02-06 22:06 | RADRPT ---
EXAM DATE: 02/06/2018 9:55 PM EDT AGE/SEX: 47 years / Female INDICATIONS: Left hip pain that shoots down at times. CLINICAL DATA: This is the patient's initial encounter. Patient reports that signs and symptoms have been present for 4 - 6 months and indicates a pain score of 9/10. MEDICAL/SURGICAL HISTORY: None. Tubal ligation. COMPARISON: No prior [facility] exams available for comparison. FINDINGS: The bony pelvic ring is grossly intact. The arcuate lines the sacrum or symmetric. The left hip is no rmal in configuration. The primary and secondary trabecular pattern of the femoral neck is intact. CONCLUSION: Negative exam. Electronically signed by: Shekhar Javier MD 02/06/2018 10:05 PM EDT
[2018-02-06] MEDS ORDERED: TRAM50 PO (22:14)
== END 2018-02-06 22:31 | disposition home or self-care (01) ==
LOC: PHEFT 19:19
DX: M25.552 Pain in left hip (principal)
CPT/HCPCS: 73502; 99283